=== PATIENT | female | born 1960 | race Caucasian/White ===

== ENCOUNTER → 2017-09-14 | Outpatient (CLI) | payer BC ==
--- NOTE | 2017-09-14 09:59 | DIAGNOSTIC IMAGING REPORT ---
FUSION CT SINUSES W/O HISTORY: 57 years-old Female J32.9 Chronic sinusitisPLEASE PERFORM POST TREATMENT FUSION CT S COMPARISON: None available TECHNIQUE: Multiple axial CT images of the paranasal sinuses were obtained without contrast. [employer] axial images were also submitted. A dose lowering technique was used consistent with the principals of RUMA. FINDINGS: Mastoid air cells and middle ear cavities are clear. There is complete mucosal opacification of the right maxillary sinus. Severe greater than 50% mucosal opacification with central bubbly secretions involves the left maxillary sinus. There is complete opacification of the right frontal sinus with greater than 50% opacification of the left frontal sinus. There is severe near complete opacification of the bilateral ethmoid air cells with only a few air cells partially aerated. Severe mucosal thickening greater than 50% opacification involves the bilateral sphenoid sinuses with central bubbly secretions. Areas of increased attenuation are scattered throughout the paranasal sinuses, notably within the maxillary sinuses suggesting chronic inspissated mucosal material. There is mucosal thickening with complete opacification of the bilateral maxillary ostiomeatal units, frontoethmoidal and sphenoethmoidal recesses. No Jason cell or large vianney bullosa identified. There is mild sigmoidal bowing of the nasal septum. No acute facial bone fracture or dislocation identified. Georgette tiana appears normal. There is at least moderate mucosal thickening noted throughout the nasal turbinates and nasopharynx, right greater than left. Soft tissues are unremarkable. The imaged intracranial structures demonstrate no acute abnormality. IMPRESSION: 1. Severe multifocal chronic appearing sinusitis as above. 2. Marked mucosal thickening with obstruction of the bilateral maxillary ostiomeatal units, frontoethmoidal and sphenoethmoidal recesses. The above report was generated using voice recognition software. It may contain grammatical, syntax or spelling errors. Electronically signed by: Kenji Galvan M.D. 09/14/2017 9:58 AM Dictated Date/Time: 09/14/2017 8:43 AM
== END | disposition home or self-care (01) ==
LOC: C.CTS 08:22
DX: J32.9 Chronic sinusitis, unspecified (principal)

== ENCOUNTER → 2017-11-26 | Day surgery (SDC) | payer BC ==
[2017-11-08 08:34] VITALS: Ht 154.9 cm; Wt 67.3 kg
[~2017-11-26] VITALS: Ht 154.9 cm; Wt 67.3 kg
[~2017-11-26] MED LIST: AMOX500T PO; ASPCH81X PO; ATOR-24 PO; ATROPINE SULFATE 0.1 MG/ML 5ML SYR IV PRN; CALC-393 PO; CEFAZOLIN 2000MG IV PUSH 15 ML IV SCH; CETI10TA84 PO; COQ10 PO; DEXAMETHASONE SOD INJ 4 MG/ML VIAL IV PRN; DEXAMETHASONE SOD INJ 4 MG/ML VIAL ONE; EPP3/2 IM; EpHEDrine SULFATE INJ 50 MG/ML AMP IV PRN; EpHEDrine SULFATE INJ 50 MG/ML AMP ONE; EpINEphrine INJ 1MG/ML AMP 1 MG/ML AMP ONE; FENTANYL CITRATE INJ 50 MCG/1 ML 2 ML VIAL IV PRN; FENTANYL CITRATE INJ 50 MCG/1 ML 2 ML VIAL ONE; FLUT50SP45 NAE; GLYCOPYRROLATE INJ 0.2 MG/ML VIAL ONE; HYDROCODONE/ACETAMIN 5/325MG TAB PO PRN; KETOROLAC TROMETHAMINE 30 MG/ML VIAL IV. PRN; LABETALOL HCL IV 5 MG/ML 20ML IV PRN; LACTATED RINGER'S 1000ML 1,000 ML IV SCH; LIDOCAINE 4% MPF SOAK 5 ML = 1 DOSE TOP ONE; LIDOCAINE HCL 2% 2 ML VIAL (20MG/ML) ONE; LIDOCAINE/EPINEPHRINE 1% 20 ML VIAL ONE; METOCLOPRAMIDE HCL INJ 5 MG/ML 2 ML VIAL IV PRN; MIDAZOLAM HCL 1 MG/ML 2ML VIAL ONE; MOME200A INH; MoRPHine SULFATE 10 MG/ML CARP/VIAL IV PRN; NEOSTIGMINE METHYLSULFATE 5 MG/5 ML SYR ONE; ONDANSETRON INJ 2 MG/ML 2 ML VIAL IV PRN; ONDANSETRON INJ 2 MG/ML 2 ML VIAL ONE; OXYMETAZOLINE HCL 0.05% NA SPR 15 ML BTL PRN; OXYMETAZOLINE HCL 0.05% NA SPR 15 ML BTL SCH; PHENYLEPHRINE 100MCG/ML 5ML SYR IV PRN; PHENYLEPHRINE HCL INJ 10 MG/ML VIAL ONE; PRED10TA PO; PRLSR20 PO; PROPOFOL IV EMULSION 10 MG/ML 20 ML VIAL IV ONE; ROCURONIUM BROMIDE 10 MG/ML 5 ML VIAL IV ONE; SUCCINYLCHOLINE CHLORIDE 20 MG/ML 10 ML VIAL IV ONE; TRIAMCINOLONE ACET 40 MG/ML VIAL ONE; VNTHFA/IN INH; ZOLP10TA6 PO
--- NOTE | 2017-11-26 10:11 | History & Physical Bridge - [place] ---
H&P Re-Evaluation Bridge Note: I have examined the patient, reviewed the History & Physical and in the interval since the performance of the History & Physical I have noted the following changes of clinical significance: No changes noted
--- NOTE | 2017-11-26 10:19 | History & Physical Bridge - SC ---
H&P Re-Evaluation Bridge Note: I have examined the patient, reviewed the History & Physical and in the interval since the performance of the History & Physical I have noted the following changes of clinical significance: PERFORMING IMAGE-GUIDED BILATERAL FESS AND INFERIOR TURBINATE REDUCTION, POSSIBLE SEPTOPLASTY
[2017-11-26] MEDS: LIDOCAINE HCL 4% TOP 50 ML VIAL EXT ONE ×2 (11:29→11:31)
--- NOTE | 2017-11-26 12:21 | [facility] Operative Report ---
Operative Report Operative Date Nov 26, 2017. Pre-Operative Diagnosis Allergic Rhinitis, Chronic Sinusitis, Nasal Polyps, Bilateral Hypertrophy of Inferior Nasal Turbinates, Asthma Post-Operative Diagnosis same Procedure(s) Performed Image Guided Endoscopic Sinus Surgery And Inferior Turbinate Reduction, Right and Left Nasal Polypectomy Surgeon Dr. Kurt Coreas Quarry Supervisor Surgeon(s) 0 Estimated Blood Loss 75ML Findings 1. SEVERE BILATERAL SINONASAL POLYPOSIS INVOLVING ALL OF THE SINUSES WITH PURULENCE WITHIN THE BILATERAL MAXILLARY SINUSES 2. SEVERE B ITH Specimens A. Left Nasal Polyp B. Right Nasal Polyp C. Left Maxillary Sinus Contents C&S Left Maxillary Sinus Anesthesia Type General I attest to the content of the Intraoperative Record and any orders documented therein. Any exceptions are noted below.
--- NOTE | 2017-11-26 12:23 | Discharge Instructions ---
Discharge Instructions Date of Service Nov 26, 2017. Admission Reason for Admission: Allergic Rhinitis, Chronic Nasal Polyps, Asthma Discharge Discharge Diagnosis / Problem: SAME Discharge Goals Goal(s): Therapeutic intervention Activity Recommendations Activity Limitations: as noted below LIGHT ACTIVITY AND NO NOSE BLOWING FOR 2 WEEKS; NO DRIVING WHILE ON NORCO . Current Hospital Diet Patient's current hospital diet: Discharge Diet Recommended Diet: Regular Diet Procedures Procedures Performed: Image Guided Endoscopic Sinus Surgery And Inferior Turbinate Reduction Pending Studies Studies pending at discharge: no Medical Emergencies . Who to Call and When: Medical Emergencies: If at any time you feel your situation is an emergency, please call 911 immediately. . Non-Emergent Contact Non-Emergency issues call your: Surgeon . . "Provider Documentation" section prepared by González Coreas. .
--- NOTE | 2017-11-26 13:45 | Anesthesia Progress Nt - [facility] ---
Anesthesia Post Op Note Date & Time Nov 26, 2017 at 13:44 Vital Signs Pain Intensity: 0 Vital Signs Past 12 Hours Date Time Temp Pulse Resp B/P (MAP) Pulse Ox O2 Delivery O2 Flow Rate FiO2 11/26/17 13:14 36.7 37 22 111/63 (79) 95 Room Air 11/26/17 13:03 36.4 11/26/17 13:01 142/68 (82) 11/26/17 13:00 48 12 98 11/26/17 13:00 48 12 11/26/17 12:56 153/71 (82) 11/26/17 12:55 50 14 11/26/17 12:55 50 14 99 11/26/17 12:55 Room Air 11/26/17 12:51 141/81 (100) 11/26/17 12:50 44 11 11/26/17 12:50 44 11 100 11/26/17 12:46 160/79 (88) 11/26/17 12:45 49 14 11/26/17 12:45 49 14 100 11/26/17 12:41 157/77 (91) 11/26/17 12:40 58 15 100 11/26/17 12:40 57 15 11/26/17 12:35 61 9 143/79 (107) 100 11/26/17 12:35 60 9 11/26/17 12:32 140/82 (102) 11/26/17 12:29 36.4 90 16 140/82 97 Diffusion Mask 4 11/26/17 09:01 36.5 53 16 144/88 (106) 98 Room Air Notes Mental Status: alert / awake / arousable, participated in evaluation Pt Amnestic to Procedure: Yes Nausea / Vomiting: adequately controlled Pain: adequately controlled Airway Patency, RR, SpO2: stable & adequate BP & HR: stable & adequate Hydration State: stable & adequate Anesthetic Complications: no major complications apparent
[2017-11-26 13:52] VITALS: BP 122/73; PULSE 44; O2SAT 98
--- NOTE | 2017-11-26 14:31 | OPERATIVE REPORT ---
DATE OF OPERATION: 11/26/2017 PREOPERATIVE DIAGNOSES: 1. Chronic polypoid rhinosinusitis. 2. Bilateral inferior turbinate hypertrophy. POSTOPERATIVE DIAGNOSES: 3. Chronic polypoid rhinosinusitis. 4. Bilateral inferior turbinate hypertrophy. PROCEDURES: Aylatronic fusion image guided endoscopic sinus surgery consisting of: 1. Bilateral maxillary antrostomies. 2. Bilateral complete ethmoidectomies. 3. Bilateral frontal sinusotomies. 4. Bilateral sphenoidotomies. 5. Bilateral inferior turbinate outfracture and turbinoplasties. SURGEON: Dr. Coreas. ANESTHESIA: General endotracheal. ESTIMATED BLOOD LOSS: 75 mL. FINDINGS: Severe sinonasal polyposis involving all the paranasal sinuses along with purulence within the bilateral maxillary sinuses. SPECIMENS: 1. Left and right nasal polyps for permanent pathological assessment. 2. Left maxillary sinus contents for permanent pathological assessment. 3. Left maxillary sinus purulence for Gram stain, culture and sensitivity. COMPLICATIONS: None. INDICATIONS FOR THE PROCEDURE: The patient is a 57-year-old female with a history of severe allergic rhinitis and chronic polypoid rhinosinusitis which has been refractory to maximal medical therapy. She presents for the above-mentioned procedures on an outpatient elective basis. DESCRIPTION OF PROCEDURE: After informed consent had been obtained from the patient, the patient was wheeled to the operating room and placed on the operating table in the supine position. Monitors were placed after induction of general endotracheal anesthesia, the patient was prepped in the usual fashion for image guided bilateral endoscopic sinus surgery. The Luminetx fusion headset was placed over the forehead and was registered, calibrated, and verified and used throughout the case. Lidocaine and epinephrine pledgets were placed into bilateral nasal cavities and pressure applied. Left-sided pledgets were removed. There was a polyp within the left middle meatus and inferior meatus and photodocumentation of the polyp was undertaken. The nasal polyp was injected with 1% lidocaine with 1:100,000 epinephrine. A freer elevator was used to medialize the middle turbinate and the middle turbinate and lateral nasal wall were also injected with local anesthetic. A lidocaine and epinephrine pledget was then placed into the left nasal cavity. The right side was then addressed in a similar fashion. Left-sided pledget was removed. Straight Jaxson-Cut forceps were used to take biopsies of the left nasal polyp which was sent off for permanent pathological assessment. Powered instrumentation was then used to perform a left nasal polypectomy removing polypoid tissue from the inferior middle meatus. Once the uncinate process was identified, this was removed using a freer elevator, straight Jaxson-Cut forceps, and powered instrumentation. The natural ostium of the maxillary sinus was identified and this was enlarged anteriorly, inferiorly, and posteriorly using backbiting forceps and powered instrumentation. There was a lot of purulence within the left maxillary sinus which was sent off for Gram stain, culture and sensitivity. There was a severe polypoid tissue that was removed also using 45 degree Blakesley forceps and sent off for permanent pathological assessment. Care was taken to evacuate all of the purulence from the left maxillary sinus and to ensure that there was a wide maxillary antrostomy. A complete ethmoidectomy was then performed using powered instrumentation. There was severe polyposis and inflammation in this region. A curved frontal sinus suction using image guidance was then used to enter the left frontal sinus and the polypoid tissue was removed from the left frontal recess using powered instrumentation. A sphenoidotomy was then performed by a transethmoid approach and the medial and inferior aspect of the sphenoid sinus was enlarged using powered instrumentation. Lidocaine, epinephrine and pledgets were then placed into the left ethmoid cavity. The right side was then addressed in a similar fashion with similar intraoperative findings. The nasal polyposis was more severe on this side, but the purulence within the right maxillary sinus was not as severe. A Arevalo elevator was then used to infracture and subsequently outfracture the inferior turbinates bilaterally. These were injected with 1% lidocaine with 1:100,000 epinephrine. A 2.0 mm turbinate blade using powered instrumentation was then used to perform bilateral inferior turbinoplasties in the submucosal fashion. The sinonasal cavities were then suctioned. Stammberger nasal dressing mixed with Kenalog 40 mg per mL was placed into the ethmoid cavities and middle meati. An orogastric tube was placed and the stomach was suctioned free of air and stomach contents. This marked the end the case. The patient tolerated the procedure well with no apparent complications. The patient was extubated and transferred to recovery room in stable condition. I attest to the content of the Intraoperative Record and any orders documented therein. Any exception s are noted below.
== END | disposition home or self-care (01) ==
LOC: X.SURG 08:34
DX: J32.9 Chronic sinusitis, unspecified (principal); J34.3 Hypertrophy of nasal turbinates; J33.9 Nasal polyp, unspecified; J45.909 Unspecified asthma, uncomplicated; J30.9 Allergic rhinitis, unspecified; J34.2 Deviated nasal septum; I10 Essential (primary) hypertension; Z82.49 Family history of ischemic heart disease and other diseases of the circulatory system; Z82.3 Family history of stroke; Z80.8 Family history of malignant neoplasm of other organs or systems; Z87.891 Personal history of nicotine dependence; Z79.82 Long term (current) use of aspirin; Z79.899 Other long term (current) drug therapy